=== PATIENT | male | born 1960 | race African-American/Black ===

== ENCOUNTER 2017-11-19 12:27 | Emergency (ER) | payer OTHER ==
[~2017-11-19] VITALS: Ht 182.9 cm; Wt 91.0 kg
[2017-11-19] MEDS ORDERED: KETOROLAC 60MG/2ML VIAL IM ONE (15:00)
[2017-11-19] MEDS ORDERED: HYDROCHLOROTHIAZIDE 25MG TABLET PO ONE (15:15)
[2017-11-19 18:40] VITALS: BP 163/92
== END 2017-11-19 18:45 | disposition home or self-care (01) ==
LOC: ER 14:42
DX: M19.011 Primary osteoarthritis, right shoulder (principal); M54.2 Cervicalgia; M54.5 Low back pain; E86.0 Dehydration; M47.12 Other spondylosis with myelopathy, cervical region; M47.16 Other spondylosis with myelopathy, lumbar region; F17.200 Nicotine dependence, unspecified, uncomplicated; I10 Essential (primary) hypertension; Z91.14 Patient's other noncompliance with medication regimen; Z86.73 Personal history of transient ischemic attack (TIA), and cerebral infarction without residual deficits
CPT/HCPCS: 72040; 72100; 73030; 96372; 99284; J1885